=== PATIENT | female | born 1975 ===

== ENCOUNTER 2025-08-11 23:22 | Emergency (ER) | payer OTHER ==
[~2025-08-11] VITALS: Ht 170.2 cm; Wt 68.0 kg
[2025-08-11 23:37] VITALS: BP 109/72; RESP 18; TEMP 98.6; O2SAT 100
[2025-08-12 00:40] LABS: Hematocrit 42.8 % (36.0-46.0); Hemoglobin 14.4 g/dL (12.2-16.2); Mean Corpuscular Hemoglobin 32.4 pg (28.0-32.0); Mean Corpuscular Volume 96.2 fL (80.0-100.0); Nucleated Red Blood Cells % 0.2 %
[2025-08-12 00:54] VITALS: PULSE 90
--- NOTE | 2025-08-12 00:54 | ED.PDOC ---
History of Present Illness HPI Comments 50 y/o F is [id number] ambulance from private residence for c/c of palpitations. Per EMS personnel report, patient has a history of palpitations in the past, that resolved with breathing techniques. Tonight, patient called after most recent episode onset continued amidst using techniques. Initial on scene heart rate was in the 200's and continued fluctuating between 150's to 200's range. Interventions: 200ml IVF via RAC IV access placement. Heart rate upon arrival to ED was in the 90's to 100's range. Patient denies any further pertinent medical history alongside any current symptoms at this time. Chief Complaint: Palpitations Time Seen by MD: 23:40 Reviewed Notes: Nurses Notes, Sheet Manufacturing Supervisor Notes, Medications, Allergies Information Source: Patient, Emergency Med Personnel Mode of Arrival: EMS Severity: Moderate Timing: Hours Duration: Since onset Prehospital treatment: 12 Lead EKG, E/M Engineer, IVF Past Medical History PAST MEDICAL HISTORY: Denies Surgical History: Denies all surgeries TRANSPORTATION DISPATCHER History: No Pertinent TRANSPORTATION DISPATCHER History Social History Smoker: Non-Smoker Alcohol: Denies ETOH Use Drugs: Denies Drug Use Lives In: Home All Other Systems: Reviewed and Negative (As per HPI) Physical Exam General Appearance: No Apparent Distress, Normal HEENT: Normal ENT Inspection, Pharynx Normal, TMs Normal Neck: Full Range of Motion, Non-Tender, Normal, Normal Inspection Respiratory: Chest Non-Tender, Lungs Clear, No Accessory Muscle Use, No Respiratory Distress, Normal Breath Sounds Cardiovascular: No Edema, No JVD, No Murmur, No Gallop, Normal Peripheral Pulses, Regular Rate/Rhythm Breast Exam: Deferred Gastrointestinal: No Organomegaly, Non Tender, No Pulsatile Mass, Normal Bowel Sounds, Soft Genitalia: Deferred Pelvic: Deferred Rectal: Deferred Extremities: No calf tenderness, Normal capillary refill, Normal inspection, Normal range of motion, Non-tender, No pedal edema Musculoskeletal : Apperance: Normal Neurologic: Alert, cyber incident handler II-XII nml as Tested, No Motor Deficits, Normal Affect, Normal Mood, No Sensory Deficits Cerebellar Function: Normal Reflexes: Normal Skin: Dry, Normal Color, Warm Lymphatic: No Adenopathy Was a procedure done? Was a procedure done?: No EKG EKG : Pulse Rate (adult): 90 [place]: Normal Cardiac Rhythm: NSR Block: None Hypertrophy: None ST: Normal Differential Dx Considerations may include: arrhythmia, electrolyte imbalance, dehydration, viral syndrome, anxiety, among others X-Ray, Labs, Meds, VS Vital Signs Date Time Temp Pulse Resp B/P (MAP) Pulse Ox O2 Delivery O2 Flow Rate FiO2 08/12/25 00:54 90 08/12/25 00:19 90 08/11/25 23:37 98.6 98 18 109/72 100 98.6 08/11/25 23:23 91 Lab Test 08/12/25 00:30 Range/Units White Blood Count 4.9 4.4-10.8 10^3/uL Red Blood Count 4.45 4.0-5.20 10^6/uL Hemoglobin 14.4 12.2-16.2 g/dL Hematocrit 42.8 36.0-46.0 % Mean Corpuscular Volume 96.2 80.0-100.0 fL Mean Corpuscular Hemoglobin 32.4 H 28.0-32.0 pg Mean Corpuscular Hemoglobin Concent 33.6 32.0-36.0 g/dL Red Cell Distribution Width 13.0 11.8-14.3 % Platelet Count 239 140-450 10^3/uL Mean Platelet Volume 7.9 6.9-10.8 fL Neutrophils (%) (Auto) 62.5 37.0-80.0 % Lymphocytes (%) (Auto) 28.3 10.0-50.0 % Monocytes (%) (Auto) 8.3 0.0-12.0 % Eosinophils (%) (Auto) 0.6 0.0-7.0 % Basophils (%) (Auto) 0.3 0.0-2.0 % Neutrophils # (Auto) 3.1 1.6-8.6 10 ^3/uL Lymphocytes # (Auto) 1.4 0.4-5.4 10 ^3/uL Monocytes # (Auto) 0.4 0-1.3 10 ^3/uL Eosinophils # (Auto) 0 0-0.8 10 ^3/uL Basophils # (Auto) 0 0-0.2 10 ^3/uL Nucleated Red Blood Cells 0.2 % Prothrombin Time 11.3 9.3-11.8 sec Prothrombin Time INR 1.07 0.9-1.15 Activated Partial Thromboplast Time 28.2 24.5-34.5 SEC Sodium Level 144 136-145 mmol/L Potassium Level 3.8 3.5-5.1 mmol/L Chloride Level 109 H 98-107 mmol/L Carbon Dioxide Level 25 20-31 mmol/L Anion Gap 10 5-15 Blood Urea Nitrogen 7 L 9-23 mg/dL Creatinine 0.83 0.550-1.02 mg/dL Glomerular Filtration Rate Calc 85 >90 mL/min BUN/Creatinine Ratio 8.4 L 10.0-20.0 Serum Glucose 93 74-106 mg/dL Calcium Level 8.7 8.7-10.4 mg/dL Magnesium Level 2.1 1.6-2.6 mg/dL Total Bilirubin 0.4 0.2-1.0 mg/dL Aspartate Amino Transferase (AST) 17 13-40 U/L Alanine Aminotransferase (ALT) 11 7-40 U/L Alkaline Phosphatase 65 46-116 U/L Troponin I High Sensitivity 3 L </=34 ng/L Total Protein 7.6 5.7-8.2 g/dL Albumin 4.5 3.2-4.8 g/dL Thyroid Stimulating Hormone (TSH) 1.99 0.55-4.78 uIU/mL Time of 1ST Reevaluation: 00:20 Reevaluation 1ST: Unchanged Patient Education/Counseling: Diagnosis, Treatment, Need For Follow Up Family Education/Counseling: No Family Present SEPSIS Sepsis Screen Date sepsis recognized/suspect: Aug 11, 2025 Time Sepsis recognized/suspect: 2342 Recent Procedure: No On Antibiotic Therapy: No Respiratory Rate >20: No Heart Rate >90: Yes Temp<36 C (96.8 F) or >38.3 C: No SBP <90 or MAP <65 mmHG: No New Acute Mental Status Change: No Is the patient on CPAP, BIPAP,: No Physician Orders Electrocardigram (08/11/25 23:40) Electrocardigram (08/12/25 00:40) E/M Engineer (08/11/25 23:54) Vital Signs Date Time Temp Pulse Resp B/P (MAP) Pulse Ox O2 Delivery O2 Flow Rate FiO2 08/12/25 00:54 90 08/12/25 00:19 90 08/11/25 23:37 98.6 98 18 109/72 100 98.6 08/11/25 23:23 91 Laboratory Tests Test 08/12/25 00:30 White Blood Count 4.9 10^3/uL (4.4-10.8) Departure 1 Departure Time of Disposition: 02:30 Impression: Primary Impression: Palpitations Disposition: LEFT AGAINST MEDICAL ADVICE Condition: Stable Discharged With: Self Critical Care Note Critical Care Time?: No Stability Stability form required: No Heart Score Heart Score: Heart Score Response (Comments) Value History N/A 0 EKG N/A 0 Age N/A 0 Risk Factors N/A 0 Troponin N/A 0 Total 0 I personally scribed for MICA PEMBERTON MD ([email or web address]) on 08/12/25 at 00:54. Electronically submitted by Eben Thompson ([email or web address]). I personally scribed for MICA PEMBERTON MD ([email or web address]) on 08/12/25 at 01:22. Electronically submitted by Eben Thompson [email or web address]). MICA PEMBERTON MD Aug 12, 2025 00:54
[2025-08-12 00:59] LABS: INR 1.07 (0.9-1.15); Partial Thromboplastin Time 28.2 SEC (24.5-34.5); Prothrombin Time 11.3 sec (9.3-11.8)
[2025-08-12 01:00] LABS: Alanine Aminotransferase 11 U/L (7-40); Albumin 4.5 g/dL (3.2-4.8); Alkaline Phosphatase 65 U/L (46-116); Anion Gap 10 (5-15); BUN/Creatinine Ratio 8.4 (10.0-20.0); Bilirubin, Total 0.4 mg/dL (0.2-1.0); Calcium 8.7 mg/dL (8.7-10.4); Carbon Dioxide 25 mmol/L (20-31); Glucose 93 mg/dL (74-106); Magnesium 2.1 mg/dL (1.6-2.6); Potassium 3.8 mmol/L (3.5-5.1); Sodium 144 mmol/L (136-145); Total Protein 7.6 g/dL (5.7-8.2)
[2025-08-12 01:18] LABS: Blood Urea Nitrogen 7 mg/dL (9-23); Chloride 109 mmol/L (98-107)
--- NOTE | 2025-08-12 06:58 | ECG ---
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
--- NOTE | 2025-08-12 06:58 | ECG ---
[facility] Test Date: 2025-08-11 Test Time: 23:23:05 Pat Name: POLO THOMPSONJOSÉ MIGUEL Department: [facility] ED Patient ID: [id number] Room: Gender: F Design Draftsman: IVAN : 1975 Requested By: MICA PEMBERTON Order Number: [id number] Reading MD: Gavin Rey Measurements Intervals [place] Rate: 91 P: 47 [place]: 136 QRS: 25 QRSD: 96 T: 54 QT: 361 QTc: 445 Interpretive Statements Sinus rhythm RSR' in V1 or V2, probably normal variant Electronically Signed On 08-14-2025 17:02:37 PST by Gavin Rey Please click the below link to view image of tracing.
== END 2025-08-12 01:16 | disposition left against medical advice (07) ==
LOC: EDSEX 23:22 → EDBD 23:22 → ER 23:22
DX: R00.2 Palpitations (principal); R06.02 Shortness of breath; Z79.899 Other long term (current) drug therapy
CPT/HCPCS: 36415; 80053; 83735; 84443; 84484; 85025; 85610; 85730; 93005